=== PATIENT | female | born 2000 | race Two or more races ===

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

== ENCOUNTER 2022-04-01 16:03 | Emergency (ER) | payer OTHER ==
[~2022-04-01] VITALS: Ht 152.4 cm; Wt 56.7 kg
[~2022-04-01 16:03] MED LIST: INTESTINEX680 M1 PO; RANITIDINE15 MG/1 ML PO
== END 2022-04-01 21:23 | disposition home or self-care (01) ==
LOC: ER 16:03 → EMR PED 16:06 → ER 16:06 → EMR PED 21:23
DX: H60.92 Unspecified otitis externa, left ear (principal)

== ENCOUNTER 2024-10-03 12:32 | Emergency (ER) | payer OTHER ==
[~2024-10-03] VITALS: Ht 152.4 cm; Wt 68.0 kg
[2024-10-03] MEDS ORDERED: DEXAMETHASONE SODIUM PHOSPHATE 4 MG/ML VIAL IM STA (13:24)
[2024-10-03] MEDS ORDERED: CETIRIZINE HCL 5 MG/5 ML ML PO STA (13:25)
[2024-10-03 13:55] LABS: BASO % 0.4 % (0.1-1.2); EOS # 0.19 (0.04-0.54); EOS % 1.5 % (0.7-7.0); LYMPH # 3.13 (1.18-3.74); LYMPH % 24.6 % (19.3-53.1); MEAN PLATELET VOLUME 9.80 fl (9.4-12.4); MONO # 0.85 (0.24-0.82); MONO % 6.7 % (4.7-12.5); NEUT # 8.44 (1.56-6.13); NEUT % 66.5 % (34.0-71.1); RED CELL DISTRIBUTION WIDTH 13.0 % (11.6-14.4)
[2024-10-03] MEDS ORDERED: CLOTRIMAZOLE/BE15 GM TOP (14:33)
[2024-10-03] MEDS ORDERED: ATARAX25 MG PO (14:36)
== END 2024-10-03 15:01 | disposition home or self-care (01) ==
LOC: ER 12:47
PROVIDERS: General Practice
DX: L20.9 Atopic dermatitis, unspecified (principal); B36.0 Pityriasis versicolor